=== PATIENT | female | born 1935 | race Caucasian/White ===

== ENCOUNTER 2020-12-16 16:08 | Emergency (ER) | payer MEDICARE, BC ==
[2020-12-16] MEDS ORDERED: MELATIN 3 MG-11 TAB PO (16:33)
[2020-12-16] MEDS ORDERED: PAIN RELIEF EX500 MG PO (16:35)
[2020-12-16] MEDS ORDERED: NEURONTIN400 M1 PO (16:36)
[2020-12-16] MEDS ORDERED: ADULT LOW DOSE81 MG PO (16:36)
[2020-12-16] MEDS ORDERED: MUCUS RELIEF600 MG PO (16:37)
[2020-12-16] MEDS ORDERED: IPRATROPIUM BROM3 M1 IH (16:38)
[2020-12-16] MEDS ORDERED: HCTZ 25MG25 MG PO (16:38)
[2020-12-16] MEDS ORDERED: LASIX20 M1 PO (16:40)
[2020-12-16] MEDS ORDERED: MIRALAX17 GM PO (16:40)
[2020-12-16] MEDS ORDERED: OYSTER SHELL 51 EAC2 PO (16:41)
[2020-12-16] MEDS ORDERED: MYSOLINE50 M1 PO (16:42)
[2020-12-16] MEDS ORDERED: PULMICORT0.5 MG/2 M IH (16:42)
[2020-12-16] MEDS ORDERED: RISPERDAL 2M2 MG/TAB PO (16:43)
[2020-12-16] MEDS ORDERED: TYLENOL 325MG325 MG PO (16:44)
[2020-12-16 17:13] LABS: BASO # 0.01 (0.02-0.10); EOS # 0.03 (0.04-0.40); EOS % 0.7 % (1.0-5.0); HEMATOCRIT 30.1 % (37.0-47.0); HEMOGLOBIN 9.6 g/dL (12.5-16.0); LYMPH# 0.89 (1.50-4.00); MEAN CELL VOLUME 87 fl (78-100); MEAN CORPUSCULAR HEMOGLOBIN 28 pg (27-31); MEAN CORPUSCULAR HGB CONC 32 g/dL (33-37); MEAN PLATELET VOLUME 11.4 fl (7.4-10.4); MONO # 0.43 (0.20-0.80); NEU # 2.79 (1.40-6.50); PLATELET COUNT 131 K/mm3 (130-400); RED BLOOD COUNT 3.48 M/mm3 (4.10-5.30); RED CELL DISTRIBUTION WIDTH 14.7 % (11.5-14.5); WHITE BLOOD COUNT 4.2 K/mm3 (4.8-10.8)
[2020-12-16 17:25] LABS: URINE WBC 0 /hpf (0-3)
[2020-12-16 17:26] LABS: ALBUMIN 3.2 g/dL (3.4-4.8)
[2020-12-16 17:27] LABS: POTASSIUM 4.3 mmol/L (3.5-5.1); SODIUM 141 mmol/L (136-145)
[2020-12-16 17:28] LABS: CALCIUM 8.6 mg/dL (8.3-10.5)
[2020-12-16 17:29] LABS: GLUCOSE 121 mg/dL (65-105)
[2020-12-16 17:30] LABS: CARBON DIOXIDE 27 mmol/L (23-31)
[2020-12-16 17:31] LABS: TOTAL BILIRUBIN 0.2 mg/dL (0.2-1.2)
[2020-12-16 17:34] LABS: AST-SGOT 30 U/L (5-34)
[2020-12-16 17:35] LABS: ALT/SGPT 26 U/L (0-55)
[2020-12-16 17:44] LABS: URINE APPEARANCE CLEAR; URINE BILIRUBIN NEGATIVE (NEGATIVE); URINE BLOOD NEGATIVE (NEGATIVE); URINE COLOR YELLOW; URINE GLUCOSE NEGATIVE (NEGATIVE); URINE KETONE NEGATIVE (NEGATIVE); URINE LEUKOCYTE ESTERASE NEGATIVE (NEGATIVE); URINE NITRATE NEGATIVE (NEGATIVE); URINE PROTEIN(semi-quant) NEGATIVE (NEGATIVE); URINE UROBILINOGEN NORMAL (NORMAL)
[2020-12-16 18:14] LABS: TROPONIN-I < 0.03 ng/mL (<0.030)
[2020-12-16 20:03] VITALS: BP 119/94
[2020-12-18] MEDS ORDERED: IPRATROPIUM BROM3 M1 IH (08:22)
== END 2020-12-16 20:03 | disposition other institution (70) ==
LOC: ED 16:08
PROVIDERS: Family Medicine
DX: R41.82 Altered mental status, unspecified (principal); F03.90 Unspecified dementia, unspecified severity, without behavioral disturbance, psychotic disturbance, mood disturbance, and anxiety; I50.9 Heart failure, unspecified; N18.9 Chronic kidney disease, unspecified; Z20.822 Contact with and (suspected) exposure to COVID-19; Z79.899 Other long term (current) drug therapy; Z88.8 Allergy status to other drugs, medicaments and biological substances